=== PATIENT | female | born 1990 | race Two or more races ===

== ENCOUNTER 2020-12-28 13:15 | Inpatient (IN) | payer OTHER ==
[~2020-12-28] VITALS: Ht 160 cm; Wt 3.6 kg
[2021-01-09] MEDS ORDERED: PRENATAL TABLE1 EAC1 PO (00:41)
[2021-01-09] MEDS ORDERED: VITAMIN D310 MC4 (15:15)
== END 2021-01-13 14:01 | disposition home or self-care (01) | DRG 788 ==
LOC: SURG-SUITE 01-09 00:25 → LDR 01-09 00:25 → OB/GYN 01-09 13:15 → O/R 01-09 14:55 → SURG-SUITE 01-09 19:46
PROVIDERS: ADMIT Obstetrics & Gynecology; ATTEND Obstetrics & Gynecology
PROC: 4A1HXFZ Monitoring of Products of Conception, Cardiac Rhythm, External Approach (ICD-10-PCS; 2021-01-09)
PROC: 10D00Z1 Extraction of Products of Conception, Low, Open Approach (ICD-10-PCS; principal; 2021-01-09 13:00)
DX: O42.02 Full-term premature rupture of membranes, onset of labor within 24 hours of rupture (principal); O62.0 Primary inadequate contractions; Z3A.39 39 weeks gestation of pregnancy; Z37.0 Single live birth; Z20.822 Contact with and (suspected) exposure to COVID-19